=== PATIENT | female | born 1955 | race Caucasian/White ===

== ENCOUNTER 2017-03-27 07:58 | Day surgery (SDC) | payer BC ==
[2017-03-26 15:38] LABS: BASOPHILS % (AUTO) 0.4 % (0-1); EOSINOPHILS # (AUTO) 0.1 X10'3 (0-0.9); EOSINOPHILS % (AUTO) 1.6 % (0-6); HEMATOCRIT 44.3 % (35.0-45.0); HEMOGLOBIN 14.4 g/dl (12.0-16.0); LYMPHOCYTES # (AUTO) 2.2 X10'3 (1.1-4.8); LYMPHOCYTES % (AUTO) 43.9 % (21-51); MEAN CORPUSCULAR HGB CONC 32.5 % (33.0-36.5); MEAN CORPUSCULAR VOLUME 83.2 FL (78-98); MEAN PLATELET VOLUME 9.4 FL (7.4-10.4); MONOCYTES # (AUTO) 0.5 X10'3 (0-0.9); MONOCYTES % (AUTO) 9.5 % (2-12); NEUTROPHILS # (AUTO) 2.2 X10'3 (1.8-7.7); NEUTROPHILS % (AUTO) 44.6 % (42-75); PLATELET COUNT 219 X10'3 (140-440); RED BLOOD COUNT 5.33 X10'6 (4.20-5.60); RED CELL DISTRIBUTION WIDTH 14.8 % (11.5-14.5)
[2017-03-26 15:50] LABS: INR 2.3 INR; PARTIAL THROMBOPLASTIN TIME 37 SECONDS (22-32); PROTHROMBIN TIME 23.3 SECONDS (9.0-12.0)
[2017-03-26 15:55] LABS: ALANINE AMINOTRANSFERASE 44 U/L (12-78); ALBUMIN 3.4 G/DL (3.4-5.0); ALBUMIN/GLOBULIN RATIO 0.8 (1.1-1.5); ALKALINE PHOSPHATASE 92 IU/L (46-116); ANION GAP 7 (8-16); ASPARTATE AMINO TRANSFERASE 34 U/L (10-37); BILIRUBIN,TOTAL 0.3 MG/DL (0.1-1.0); BLOOD UREA NITROGEN 9 MG/DL (7-18); BUN/CREATININE RATIO 11.5 (6.6-38.0); CALCIUM 9.2 MG/DL (8.5-10.1); CHLORIDE 105 MMOL/L (99-107); CREATININE 0.78 MG/DL (0.40-0.90); GLUCOSE 97 MG/DL (70-104); POTASSIUM 3.6 MMOL/L (3.5-5.1); SODIUM 140 MMOL/L (135-145); TOTAL CARBON DIOXIDE 28.2 MMOL/L (24-32); TOTAL PROTEIN 7.5 G/DL (6.4-8.2); eGFR 76 ML/MIN
[~2017-03-27] VITALS: Ht 160 cm; Wt 101.0 kg
[2017-03-27] VITALS (10 sets, daily range): BP systolic 115–149; BP diastolic 60–87
[2017-03-27 09:09] LABS: INR 1.9 INR; PROTHROMBIN TIME 19.1 SECONDS (9.0-12.0)
[2017-03-27] MEDS ORDERED: normal saline 1000ml 1,000 ML IV SCH (09:15)
[2017-03-27] MEDS ORDERED: LORazepam 0.5 MG tablet PO PRN (09:15)
[2017-03-27] MEDS ORDERED: nitroGLYCERIN 0.4mg SUBLingual tab SL PRN (09:15)
[2017-03-27] MEDS ORDERED: diphenhydrAMINE 25mg capsule PO PRN (09:15)
[2017-03-27] MEDS ORDERED: EPIN0.3P8 IM (09:23)
[2017-03-27] MEDS ORDERED: BIOT5000 PO (09:23)
[2017-03-27] MEDS ORDERED: LISI-600 PO (09:23)
[2017-03-27] MEDS ORDERED: METO1TAB25 PO (09:23)
[2017-03-27] MEDS ORDERED: MELA3TAB PO (09:23)
[2017-03-27] MEDS ORDERED: SULF1TAB49 PO (09:23)
[2017-03-27] MEDS ORDERED: LOVA20TA2 PO (09:23)
[2017-03-27] MEDS ORDERED: COU3T PO (09:23)
[2017-03-27] MEDS ORDERED: pneumococcal 23-VAL P-sac vacc 25 mcg/0.5ml vial IMVAC ONE (10:00)
[2017-03-27] MEDS ORDERED: iohexol 350 MG/ML 50ML vial IV ONE (11:50)
[2017-03-27] MEDS ORDERED: midazolam 2 mg/2 ml injection ONE ×2 (11:50→12:31)
[2017-03-27] MEDS ORDERED: fentaNYL/PF 50MCG/1 ML 2ML syringe ONE (11:50)
[2017-03-27] MEDS ORDERED: LIDOcaine 1%/PF (10mg/ml) 5ml vial ONE (11:50)
[2017-03-27] MEDS ORDERED: iohexol 350MG/ML 100ml bottle IV ONE (11:51)
[2017-03-27] MEDS ORDERED: ondansetron/PF 4mg/2ml inj IV PRN (13:25)
[2017-03-27] MEDS ORDERED: proCHLORperazine 10 MG/2 ml inj IV PRN (13:25)
[2017-03-27] MEDS ORDERED: OXAZEpam 15mg capsule PO PRN (13:25)
[2017-03-27] MEDS ORDERED: meperidine/PF 25mg/ml syringe IV PRN (13:30)
== END 2017-03-27 18:00 | disposition home or self-care (01) ==
LOC: SSTAY O 07:58
PROVIDERS: ATTEND Internal Medicine Cardiovascular Disease
DX: I25.10 Atherosclerotic heart disease of native coronary artery without angina pectoris (principal); I48.2 Chronic atrial fibrillation; I10 Essential (primary) hypertension; Z87.891 Personal history of nicotine dependence; Z90.49 Acquired absence of other specified parts of digestive tract; E78.5 Hyperlipidemia, unspecified; Z88.0 Allergy status to penicillin; Z88.6 Allergy status to analgesic agent; Z88.1 Allergy status to other antibiotic agents; Z79.899 Other long term (current) drug therapy
CPT/HCPCS: 36415; 71020; 80053; 85025; 85610; 85730; 90732; 93458; 99152; 99153; A6257; C1769; J1644; J2001; J2250; J3010; J7030; Q0163; Q9967; A4620

== ENCOUNTER 2018-08-07 00:39 | Outpatient (CLI) | payer BC ==
[~2018-08-07 00:39] MED LIST: BIOT5000 PO; COU3T PO; EPIN0.3P8 IM; LISI-600 PO; LOVA20TA2 PO; MELA3TAB PO; METO1TAB25 PO; SULF1TAB49 PO
== END 2018-08-07 23:59 | disposition home or self-care (01) ==
LOC: DIABETIC 00:39
PROVIDERS: ATTEND Student in an Organized Health Care Education/Training Program
DX: E66.9 Obesity, unspecified (principal); Z68.41 Body mass index [BMI] 40.0-44.9, adult
CPT/HCPCS: 97802

== ENCOUNTER 2018-10-14 04:50 | Outpatient (CLI) | payer BC | END 2018-10-14 23:59 | disposition home or self-care (01) | LOC: DIABETIC 04:50 | PROVIDERS: ATTEND Student in an Organized Health Care Education/Training Program | DX: E66.01 Morbid (severe) obesity due to excess calories (principal); Z71.3 Dietary counseling and surveillance | CPT/HCPCS: 97803 ==

== ENCOUNTER 2018-11-25 02:57 | Outpatient (CLI) | payer BC ==
[~2018-11-25 02:57] MED LIST changes: -MELA3TAB PO; +MELA3TAB64 PO
== END 2018-11-25 23:59 | disposition home or self-care (01) ==
LOC: DIABETIC 02:57
PROVIDERS: ATTEND Student in an Organized Health Care Education/Training Program
DX: E66.9 Obesity, unspecified (principal); I10 Essential (primary) hypertension; Z68.41 Body mass index [BMI] 40.0-44.9, adult
CPT/HCPCS: 97803

== ENCOUNTER 2024-03-09 09:19 | Emergency (ER) | payer MEDICARE, BC ==
[~2024-03-09] VITALS: Ht 175.3 cm; Wt 77.1 kg
[~2024-03-09 09:19] MED LIST changes: -LISI-600 PO; +LISI20TA28 PO; +MELA3TAB39 PO; -MELA3TAB64 PO
[2024-03-09 09:28] VITALS: BP 182/54; PULSE 60; RESP 18; TEMP 98.7; O2SAT 99
== END 2024-03-09 11:16 | disposition home or self-care (01) ==
LOC: ER 09:20
DX: S80.11XA Contusion of right lower leg, initial encounter (principal); Z88.0 Allergy status to penicillin; Z88.1 Allergy status to other antibiotic agents; Z88.5 Allergy status to narcotic agent; Z79.01 Long term (current) use of anticoagulants; Z79.899 Other long term (current) drug therapy; W20.8XXA Other cause of strike by thrown, projected or falling object, initial encounter; Y93.89 Activity, other specified; Y92.89 Other specified places as the place of occurrence of the external cause; Y99.8 Other external cause status
CPT/HCPCS: 73590; 99284